=== PATIENT | female | born 1990 | race Caucasian/White ===

== ENCOUNTER 2019-05-04 01:00 | Inpatient (IN) | payer OTHER ==
[2019-05-04] MEDS: ELECTROLYTE-148 SOLN 1,000 ML IV SCH ×2 (02:45→12:00)
[2019-05-04 03:09] LABS: BASO % 0.3 % (0-2.0); EOS % 1.3 % (0-4.5); HEMATOCRIT 35.9 % (32.4-45.2); HEMOGLOBIN 12.2 GM/dL (10.7-15.3); LYMPH % 18.1 % (8-40); MCH 31.2 pg (25.7-33.7); MCHC 33.9 g/dl (32.0-36.0); MEAN CELL VOLUME 91.9 fl (80-96); MEAN PLT VOLUME 8.7 fl (7.5-11.1); MONO % 6.6 % (3.8-10.2); NEUT % 73.7 % (42.8-82.8); PLATELET COUNT 246 K/MM3 (134-434); RBC 3.91 M/mm3 (3.60-5.2); RDW 13.6 % (11.6-15.6); WHITE BLOOD COUNT 13.1 K/mm3 (4.0-10.0)
[2019-05-04 03:30] LABS: INR 0.97 (0.83-1.09); PROTHROMBIN TIME (PATIENT) 11.5 SEC (9.7-13.0)
[2019-05-04 03:45] VITALS: BMI 34.0
[2019-05-04 03:50] LABS: BLOOD UREA NITROGEN 5.6 mg/dL (7-18); CALCIUM 9.4 mg/dL (8.5-10.1); CREATININE 0.5 mg/dL (0.55-1.3); POTASSIUM 3.5 mmol/L (3.5-5.1)
[2019-05-04 04:12] LABS: ACTIVATED PTT 29.2 SECONDS (25.2-36.5)
[2019-05-04] MEDS ORDERED: DINOPROSTONE 10 MG VAGINAL SUPPOSITORY VG ONE (05:45)
[2019-05-04] MEDS ORDERED: AMPICILLIN - 2 GM in SODIUM CHLORIDE 100 ML IVPB ONE (05:57)
[2019-05-04] MEDS ORDERED: DEXTROSE 5%-LACTATED RINGERS 1,000 ML IV SCH (06:00)
--- NOTE | 2019-05-04 06:04 | HP ---
Past Medical History - Admission Chief Complaint: Leakage of fluid History of Present Illness: 28 yo , @ 38 weeks gestation, EDC 05/19/19, admitted due to spontaneous rupture of membrane. Upon admission there was gross pooling and cervix was closed. History Source: Patient Limitations to Obtaining History: No Limitations - Past Medical History ...: 1 ...Para: 0 ...LMP: 10/08/18 ...EDC by Sono: 05/19/19 - Past Surgical History Past Surgical History: Yes: None Hx Myomectomy: No Hx Transabdominal Cerclage: No - Smoking History Smoking history: Never smoked - Alcohol/Substance Use Hx Alcohol Use: No - Social History Usual Living Arrangement: Yes: With Significant Other History of Recent Travel: No Home Medications - Allergies Allergies/Adverse Reactions: Allergies Allergy/AdvReac Type Severity Reaction Status Date / Time aspirin Allergy Severe Difficulty Verified 05/04/19 03:49 Breathing - Home Medications Home Medications: Ambulatory Orders 147/Iron/Folic Acid 1 tab PO DAILY 05/04/19 Review of Systems - Review of Systems Constitutional: denies: Fever Eyes: reports: No Symptoms HENT: reports: No Symptoms Neck: reports: No Symptoms Cardiovascular: reports: No Symptoms Respiratory: reports: No Symptoms Gastrointestinal: reports: No Symptoms Genitourinary: reports: Other (Leakage of fluid) Breasts: reports: No Symptoms Reported Musculoskeletal: reports: No Symptoms Integumentary: reports: No Symptoms Neurological: reports: No Symptoms Endocrine: reports: No Symptoms Hematology/Lymphatic: reports: No Symptoms Psychiatric: reports: No Symptoms Pain Intensity: 3 Physical Exam - Maternity Vital Signs: Vital Signs Temperature 97.5 F L 05/04/19 05:00 Pulse Rate 95 H 05/04/19 05:00 Respiratory Rate 20 05/04/19 05:00 Blood Pressure 116/70 05/04/19 05:00 O2 Sat by Pulse Oximetry (%) Constitutional: Yes: No Distress Eyes: Yes: Conjunctiva Clear HENT: Yes: Atraumatic Neck: Yes: Supple Cardiovascular: Yes: Regular Rate and Rhythm Lungs: Clear to auscultation - Abdominal Exam/OB Number of Fetuses: Single Presentation: Vertex Contractions: Yes Regularity: Irregular Intensity: Mild - Vaginal Exam/OB Presentation: Vertex/Position Station: -2 - Physical Exam Musculoskeletal: Yes: WNL Extremities: Yes: WNL Integumentary: Yes: WNL ...Motor Strength: WNL Psychiatric: Yes: Alert, Oriented - Labs Lab Results: CBC, BMP 05/04/19 02:30 05/04/19 02:30 Problem List - Problems (1) 38 weeks gestation of Problems reviewed: Yes Code(s): Z3A.38 - 38 WEEKS GESTATION OF (2) Rupture of membranes with clear amniotic fluid Problems reviewed: Yes Code(s): KVM4430 - Assessment/Plan 38 weeks gestation Spontaneous rupture of membrane Admit to L&D Cervidil induction
[2019-05-04] MEDS ORDERED: AMPICILLIN SODIUM 2 GM VIAL ONE (06:19)
[2019-05-04] MEDS ORDERED: AMPICILLIN SODIUM 1 GM VIAL ONE ×4 (09:55→21:53)
[2019-05-04] MEDS: AMPICILLIN - 1 GM in SODIUM CHLORIDE 100 ML IVPB SCH ×4 (10:00→22:00)
[2019-05-04] MEDS ORDERED: BUTORPHANOL TARTRATE 2 MG/ML VIAL IVPUSH PRN (15:03)
[2019-05-04] MEDS ORDERED: PROMETHAZINE HCL 25 MG/1 ML VIAL IVPB PRN (15:04)
[2019-05-04] MEDS ORDERED: PROMETHAZINE HCL 25 MG/1 ML VIAL ONE (18:42)
[2019-05-04] MEDS ORDERED: BUTORPHANOL TARTRATE 1 MG/ML VIAL ONE ×2 (18:42)
[2019-05-04] MEDS ORDERED: FENTANYL/BUPIVACAINE/NS/PF - PCEA - 50 ML DISP.SYRIN EP ONE (21:55)
[2019-05-04] MEDS ORDERED: OXYTOCIN 30 UNITS in 0.9% NS 30 UNIT/500 ML INFUS.BAG IVPB ONE (21:56)
[2019-05-04] MEDS ORDERED: OXYTOCIN 30 UNITS in 0.9% NS 30 UNIT/500 ML INFUS.BAG IVPB SCH (22:45)
[2019-05-04] MEDS ORDERED: NALOXONE HCL 0.4 MG/ML VIAL IVPUSH PRN (23:22)
[2019-05-04] MEDS ORDERED: FENTANYL/BUPIVACAINE/NS/PF - PCEA - 50 ML DISP.SYRIN EP SCH (23:30)
[2019-05-05] MEDS: ELECTROLYTE-148 SOLN 1,000 ML IV SCH ×2 (00:30→03:45)
[2019-05-05] MEDS: AMPICILLIN - 1 GM in SODIUM CHLORIDE 100 ML IVPB SCH (02:15)
[2019-05-05] MEDS ORDERED: AMPICILLIN SODIUM 1 GM VIAL ONE ×2 (02:20→06:20)
[2019-05-05] MEDS ORDERED: FENTANYL/BUPIVACAINE/NS/PF - PCEA - 50 ML DISP.SYRIN EP ONE ×2 (03:51→07:13)
[2019-05-05] MEDS ORDERED: OXYTOCIN 20 UNITS in 0.9% NS 20 UNIT/1,000 ML INFUS.BAG IV ONE (07:14)
[2019-05-05] MEDS ORDERED: ACETAMINOPHEN 325 MG TABLET (FP) ONE ×2 (07:20→09:57)
[2019-05-05] MEDS ORDERED: ACETAMINOPHEN 325 MG TABLET (FP) PO ONE ×2 (08:30→11:15)
[2019-05-05] MEDS ORDERED: LIDOCAINE HCL 1% PRESERVATIVE FREE - 30ML VIAL ONE (09:26)
[2019-05-05] MEDS ORDERED: METHYLERGONOVINE MALEATE 0.2 MG/1 ML AMP IM PRN (09:51)
[2019-05-05] MEDS ORDERED: BISACODYL 10 MG SUPP.RECT RC PRN (09:51)
[2019-05-05] MEDS ORDERED: BENZOCAINE 28 GM HEMORRHOIDAL OINTMENT TP PRN (09:51)
[2019-05-05] MEDS ORDERED: WITCH HAZEL 50% (TUCKS) 40 PAD/JAR PAD TP PRN (09:51)
[2019-05-05] MEDS ORDERED: BENZOCAINE 20% 57 GM BOTTLE TP PRN (09:51)
[2019-05-05] MEDS ORDERED: IBUPROFEN 600 MG TABLET (FP) PO PRN (09:51)
--- NOTE | 2019-05-05 09:55 | PN ---
Delivery - Delivery Vaginal Delivery: Spontaneous Type of Anesthesia: Epidural Episiotomy/Laceration: Midline EBL (cc): 300 Delivery, Single - Feeding Plan Initial Plan: Elected not to breastfeed exclusively throughout hospitalization Remarks - Remarks Remarks: Normal spontaneous vaginal delivery of a live infant girl over midline episiotomy. Nose / Oropharynx suctioned @ perineum. Nuchol cord x 1 clamped and cut. Baby handed to Neonatoologist. Placenta expelled spontaneously intact. Laceration repaired with 2.0 Chromic.
[2019-05-05] MEDS ORDERED: OXYTOCIN 20 UNITS in 0.9% NS 20 UNIT/1,000 ML INFUS.BAG IV SCH (10:00)
[2019-05-05] MEDS: ACETAMINOPHEN 325 MG TABLET (FP) PO PRN ×2 (10:15→18:19)
[2019-05-05] MEDS ORDERED: oxyCODONE HCL 5 MG TABLET ONE (11:05)
[2019-05-05] MEDS ORDERED: oxyCODONE HCL 5 MG TABLET PO ONE (11:15)
[2019-05-06] MEDS: oxyCODONE HCL 5 MG TABLET PO PRN ×3 (01:16→20:02)
[2019-05-06 08:12] LABS: BASO % 0.2 % (0-2.0); EOS % 1.7 % (0-4.5); HEMATOCRIT 29.7 % (32.4-45.2); HEMOGLOBIN 10.2 GM/dL (10.7-15.3); LYMPH % 16.6 % (8-40); MCH 31.9 pg (25.7-33.7); MCHC 34.4 g/dl (32.0-36.0); MEAN CELL VOLUME 92.5 fl (80-96); MEAN PLT VOLUME 8.4 fl (7.5-11.1); MONO % 4.9 % (3.8-10.2); NEUT % 76.6 % (42.8-82.8); PLATELET COUNT 209 K/MM3 (134-434); RDW 13.8 % (11.6-15.6); WHITE BLOOD COUNT 14.7 K/mm3 (4.0-10.0)
--- NOTE | 2019-05-06 09:14 | PN ---
Post Progress Note - Subjective Subjective: 28 yo Para 1 status post normal vaginal delivery, seen and evaluated. Doing well Post Day: 1 Type of Delivery: Vital Signs: Vital Signs Temperature 97.7 F 05/06/19 06:00 Pulse Rate 72 05/06/19 06:00 Respiratory Rate 20 05/06/19 06:00 Blood Pressure 120/64 05/06/19 06:00 O2 Sat by Pulse Oximetry (%) 99 05/05/19 08:15 Breast Exam: Yes: Soft Uterus: Yes: Fundus Firm Abdomen/GI: Yes: Abdomen soft, Tolerating PO Lochia: Yes: Rubra Lochia, amount: Moderate Extremities: Yes: Calves non-tender Activity: Ambulating - Labs Labs: CBC WBC 14.7 K/mm3 (4.0-10.0) H 05/06/19 07:32 RBC 3.20 M/mm3 (3.60-5.2) L 05/06/19 07:32 Hgb 10.2 GM/dL (10.7-15.3) L 05/06/19 07:32 Hct 29.7 % (32.4-45.2) L D 05/06/19 07:32 MCV 92.5 fl (80-96) 05/06/19 07:32 MCH 31.9 pg (25.7-33.7) 05/06/19 07:32 MCHC 34.4 g/dl (32.0-36.0) 05/06/19 07:32 RDW 13.8 % (11.6-15.6) 05/06/19 07:32 Plt Count 209 K/MM3 (134-434) 05/06/19 07:32 MPV 8.4 fl (7.5-11.1) 05/06/19 07:32 Absolute Neuts (auto) 11.3 K/mm3 (1.5-8.0) H 05/06/19 07:32 Neutrophils % 76.6 % (42.8-82.8) 05/06/19 07:32 Lymphocytes % 16.6 % (8-40) 05/06/19 07:32 Monocytes % 4.9 % (3.8-10.2) 05/06/19 07:32 Eosinophils % 1.7 % (0-4.5) 05/06/19 07:32 Basophils % 0.2 % (0-2.0) 05/06/19 07:32 Nucleated RBC % 0 % (0-0) 05/06/19 07:32 Problem List - Problems (1) 38 weeks gestation of Problems reviewed: Yes Code(s): Z3A.38 - 38 WEEKS GESTATION OF (2) Rupture of membranes with clear amniotic fluid Problems reviewed: Yes Code(s): WQR5301 - (3) Status post normal vaginal delivery Problems reviewed: Yes Code(s): [id number] - Assessment/Plan Status post vaginal delivery Stable Continue routine care
[2019-05-06] MEDS: PRENATAL VITAMINS W/ FOLIC ACID TABLET (FP) PO SCH (10:50)
[2019-05-06] MEDS: ACETAMINOPHEN 325 MG TABLET (FP) PO PRN ×2 (10:52→20:00)
[2019-05-06] MEDS ORDERED: SENNOSIDES/DOCUSATE COMBO (SENNA PLUS) TABLET (UD) PO PRN (22:00)
--- NOTE | 2019-05-07 08:07 | DS ---
Physical Exam-CHANGE CONSULTANT Vital Signs: Vital Signs Temperature 98.0 F 05/06/19 22:00 Pulse Rate 96 H 05/06/19 22:00 Respiratory Rate 20 05/06/19 22:00 Blood Pressure 122/74 05/06/19 22:00 O2 Sat by Pulse Oximetry (%) 99 05/05/19 08:15 Constitutional: Yes: Well Nourished, No Distress Gastrointestinal: Yes: WNL, Soft ....Post : Yes: Uterus firm, Uterus non-tender Breast(s): Yes: WNL Extremities: Yes: WNL Edema: No Labs: CBC, BMP 05/06/19 07:32 05/04/19 02:30 Delivery - Delivery Vaginal Delivery: Spontaneous Type of Anesthesia: Epidural Episiotomy/Laceration: Midline EBL (cc): 300 Delivery, Single - Stages of Labor Date 1st Stage Initiatied: 05/04/19 Time 1st Stage Initiated: 22:00 Date 2nd Stage Initiated: 05/05/19 Time 2nd Stage Initiated: 09:00 Date of Delivery: 05/05/19 Time of Delivery: 09:32 Time Placenta Delivered: 09:35 - Condition of Infant Revit Drafter/Logistics Solution Manager Present: Yes Name: Padma Novak Infant Gender: Female Weight: 6 lb 1 oz Position: Left, OA Total Hours ROM (Hrs/Mins): 33h50m - 1 Minute Total Score: 5 5 Minutes Total Score: 9 - [place] Feeding Plan Initial Plan: Elected not to breastfeed exclusively throughout hospitalization Discharge Summary Problems reviewed: Yes Reason For Visit: LABOR Current Active Problems 38 weeks gestation of (Acute) Rupture of membranes with clear amniotic fluid (Acute) Status post normal vaginal delivery (Acute) Procedures: Principal: Normal vaginal delivery Condition: Good - Instructions Diet, Activity, Other Instructions: Regular diet No douching, no sexual intercourse x 6 weeks F/U with MD in 6 weeks Disposition: HOME - Home Medications Comprehensive Discharge Medication List: Ambulatory Orders 147/Iron/Folic Acid 1 tab PO DAILY 05/04/19
[2019-05-07] MEDS: PRENATAL VITAMINS W/ FOLIC ACID TABLET (FP) PO SCH (09:52)
[2019-05-07] MEDS: oxyCODONE HCL 5 MG TABLET PO PRN (09:52)
[2019-05-07] MEDS: ACETAMINOPHEN 325 MG TABLET (FP) PO PRN (09:53)
[2019-05-07 10:48] VITALS: BP 125/77; PULSE 92; TEMP 98.3
== END 2019-05-07 12:50 | disposition home or self-care (01) | DRG 560 ==
LOC: JLDR 01:00 → J3W 05-05 11:27
PROVIDERS: ADMIT Obstetrics & Gynecology; ATTEND Obstetrics & Gynecology
PROC: 0W8NXZZ Division of Female Perineum, External Approach (ICD-10-PCS; principal; 2019-05-05)
PROC: 10E0XZZ Delivery of Products of Conception, External Approach (ICD-10-PCS; 2019-05-05)
DX: O69.81X0 Labor and delivery complicated by cord around neck, without compression, not applicable or unspecified (principal); Z3A.38 38 weeks gestation of pregnancy; Z37.0 Single live birth
CPT/HCPCS: 36415; 59409; 80048; 85025; 85610; 85730; 86593; 86850; 86900; 86901; 87389